=== PATIENT | female | born 1945 | race Caucasian/White ===

== ENCOUNTER 2016-07-19 09:23 | Emergency (ER) | payer MEDICARE, OTHER ==
[~2016-07-19] VITALS: Ht 160 cm; Wt 90.7 kg
--- NOTE | 2016-07-19 10:12 | PHYS DOC ---
Past Medical History Past Medical History: Diabetes-Type II, High Cholesterol, Hypertension Past Surgical History: No Surgical History Alcohol Use: None Drug Use: None Adult General Chief Complaint Chief Complaint: COUGH HPI HPI Patient is a 70 year old female who presents with 1 day of cough and congestion. Patient states that her symptoms started yesterday and progressively worsened throughout the day. Patient states that she has had blood -tinged mucus from her nose and has since had productive cough of blood-tinged white sputum. Patient denies any history of asthma or chronic lung disease. The patient has had chills but denies fevers. Patient also admits headache which she describes as generalized area patient rates her headache as 6 out of 10 currently. Patient states that she did get her flu shot for the season. Patient follows a Dr. Bill for primary care. Patient took Tylenol approximately 2-3 hours prior to arrival. Review of Systems Review of Systems Constitutional: Chills, denies fevers [] Eyes: Denies change in visual acuity, redness, or eye pain [] HENT: Nasal congestion, epistaxis, sore throat [] Respiratory: Productive cough [] Cardiovascular: Denies chest pain or edema [] GI: Denies abdominal pain, nausea, vomiting, bloody stools or diarrhea [] : Denies dysuria or hematuria [] Musculoskeletal: Denies back pain or joint pain [] Integument: Denies rash or skin lesions [] Neurologic: Denies headache, focal weakness or sensory changes [] Endocrine: Denies polyuria or polydipsia [] Allergies Allergies Allergies Coded Allergies Type Severity Reaction Last Updated Verified No Known Drug Allergies 07/19/16 No Physical Exam Physical Exam Constitutional: Alert, afebrile, no acute distress. [] HENT: Normocephalic, atraumatic, bilateral external ears normal, oropharynx moist, no oral exudates, dry nasal mucosa, thick white rhinorrhea. [] Eyes: PERRLA, EOMI, conjunctiva normal, no discharge. [] Neck: Normal range of motion, no tenderness, supple, no stridor. [] Cardiovascular:Heart rate regular rhythm, no murmur [] Lungs & Thorax: Nonlabored respirations, lungs clear to auscultation bilaterally , chest nontender to palpation [] Abdomen: Bowel sounds normal, soft, no tenderness, no masses, no pulsatile masses. [] Skin: Warm, dry, no erythema, no rash. [] Back: No tenderness, no CVA tenderness. [] Extremities: No tenderness, no cyanosis, no clubbing, ROM intact, no edema. [] Neurologic: Alert and oriented X 3, normal motor function, normal sensory function, no focal deficits noted. [] Current Patient Data Vital Signs Vital Signs Date Time Temp Pulse Resp B/P Pulse Ox O2 Delivery O2 Flow Rate FiO2 07/19/16 09:45 98.1 89 18 159/77 94 Room Air 98.1 Lab Values Laboratory Tests Test 07/19/16 10:20 Influenza Type A Antigen Negative (NEGATIVE) Influenza Type B Antigen Negative (NEGATIVE) EKG EKG Not performed [] Radiology/Procedures Radiology/Procedures [facility] [address] [place] [address] IMAGING REPORT Signed PATIENT: RICHARD RAM ACCOUNT: [id number] : 1945 LOCATION: ER AGE: 70 SEX: F EXAM STATUS: REG ER ORD. PHYSICIAN: LAUREN EASLEY MD REASON: cough PROCEDURE: CHEST PA & LATERAL 2 view CXR: Clinical indications: Productive cough today. Small amounts of blood in the mucus. History of diabetes and hypertension. Comparison: No previous chest x-ray. Chest CT dated May 12, 2012.. Findings: Chronic bronchitis is seen. There is chronic thickening of the minor fissure. Chronic scarring is seen within the left midlung zone. No new lung infiltrate or pleural effusion or pulmonary edema is seen. A granuloma of the right lung base is again noted. The heart size is at the upper limits of normal. The mediastinum and pulmonary vasculature and both charisma are otherwise unremarkable. The osseous structures are intact. IMPRESSION: Chronic bronchitis. No acute radiographic abnormality is seen. DICTATED and SIGNED BY: SHEILA TUCKER MD DATE: 07/19/16 1035 CC: LAUREN EASLEY MD; ZARI BILL MD ~ [] Course & Med Decision Making Course & Med Decision Making Pertinent Labs and Imaging studies reviewed. (See chart for details) Patient's flu test was negative and patient's chest x-ray did not show any evidence of pneumonia. The patient will be discharged with prescriptions for Tessalon Perles and albuterol. Advised follow-up in 2 days a primary doctor and return to emergency department for any worsening symptoms. Patient voiced understanding and in agreement with treatment plan. Dragon Disclaimer Dragon Disclaimer This electronic medical record was generated, in whole or in part, using a voice recognition dictation system. Departure Departure Impression: Primary Impression: Upper respiratory infection Disposition: HOME, SELF-CARE Condition: STABLE Referrals: ZARI BILL MD (PCP) Patient Instructions: Upper Respiratory Infection, Adult Additional Instructions: Follow-up with your primary doctor in 2 days. Return to emergency department for any worsening symptoms. Scripts Albuterol Sulfate (Proair Hfa Inhaler)8.5 Gm Hfa.aer.ad1 Puff INH PRN Q6HRS PRN SHORTNESS OF BREATH #1 INHALER Ref 0 Prov:LAUREN EASLEY MD 07/19/16 Benzonatate (Tessalon Perle)100 Mg Capsule1 Cap PO TID #30 CAP Prov:LAUREN EASLEY MD 07/19/16 Problem Qualifiers Primary Impression: Upper respiratory infection URI type: unspecified URI Qualified Code: J06.9 - Acute upper respiratory infection, unspecified LAUREN EASLEY MD Jul 19, 2016 10:12
--- NOTE | 2016-07-19 10:41 | RAD ---
2 view CXR: Clinical indications: Productive cough today. Small amounts of blood in the mucus. History of diabetes and hypertension. Comparison: No previous chest x-ray. Chest CT dated May 12, 2012.. Findings: Chronic bronchitis is seen. There is chronic thickening of the minor fissure. Chronic scarring is seen within the left midlung zone. No new lung infiltrate or pleural effusion or pulmonary edema is seen. A granuloma of the right lung base is again noted. The heart size is at the upper limits of normal. The mediastinum and pulmonary vasculature and both charisma are otherwise unremarkable. The osseous structures are intact. IMPRESSION: Chronic bronchitis. No acute radiographic abnormality is seen.
[2016-07-19 10:46] LABS: OBC FLU VALID
[2016-07-19] MEDS ORDERED: PROAIR HFA8.5 GM INH (10:51)
[2016-07-19] MEDS ORDERED: BENZ100C PO (10:51)
[2016-07-19 11:05] VITALS: BP 155/80
== END 2016-07-19 11:10 | disposition home or self-care (01) ==
LOC: ER 09:23
DX: J06.9 Acute upper respiratory infection, unspecified (principal); E11.9 Type 2 diabetes mellitus without complications; R51 Headache; R04.0 Epistaxis; E78.00 Pure hypercholesterolemia, unspecified; I10 Essential (primary) hypertension
CPT/HCPCS: 71020; 87804; 99285-25

== ENCOUNTER → 2016-10-19 | Outpatient (CLI) | payer OTHER ==
[~2016-10-19] MED LIST: BENZ100C PO; PROAIR HFA8.5 GM INH
--- NOTE | 2016-10-19 09:01 | KCIC ---
PROCEDURE Abdomen ultrasound HISTORY Worsening right upper quadrant pain with nausea and vomiting COMPARISON None FINDINGS Multiple sonographic images of the abdomen are submitted. There is no abnormality of the visualized pancreas. There is diffuse coarsening of the echotexture of liver, no obvious focal hepatic mass demonstrated. Right lobe of the liver measured 15.5 centimeters longitudinal. Common bile duct is dilated up to 0.9 centimeters. Technologist reports a positive sonographic Song sign although no significant intraluminal abnormality of the gallbladder. There is no gallbladder wall thickening, measures 0.2 centimeters. There is no pericholecystic fluid. Right kidney measured 11.1 x 5.9 x 5 centimeters, no hydronephrosis. There is segmental visualization of the inferior vena cava. No free fluid is demonstrated. IMPRESSION 1. Common bile duct is dilated up to 0.9 centimeters, more distal obstruction possible. There is nonspecific positive sonographic Song's sign although no significant intraluminal abnormality of the gallbladder. 2. There is hepatic steatosis. Electronically signed by: Jensen Munguia MD (Oct 19, 2016 09:00:20)
== END | disposition home or self-care (01) ==
LOC: KCIC US 07:39
PROVIDERS: ATTEND Family Medicine
DX: R10.11 Right upper quadrant pain (principal); K76.0 Fatty (change of) liver, not elsewhere classified
CPT/HCPCS: 76705

== ENCOUNTER → 2016-11-02 | Outpatient (CLI) | payer OTHER ==
[~2016-11-02] MED LIST changes: +IOHEXOL 240 MG/ML 50ML VIAL. PO ONE; +IOHEXOL 300 MG/ML 75 ML VIAL IV ONE
--- NOTE | 2016-11-02 13:24 | RAD ---
CT of the abdomen and pelvis with contrast, 11/02/2016: History: Right-sided abdominal pain Multidetector CT imaging was performed following oral and IV administration of contrast. A calcified granuloma is present in the right base. There are calcified granulomata in the liver and spleen. There is no evidence of a hepatic mass or bile duct dilatation. The gallbladder is unremarkable. No pancreatic abnormality is seen. The spleen is of normal size. There is mild bilateral renal cortical scarring. The kidneys show no evidence of obstruction or mass. The adrenal glands are unremarkable. Aortic calcific plaquing is present without evidence of aneurysm. No abdominal or pelvic adenopathy is seen. The uterus is surgically absent. Colonic diverticula are present, most numerous in the sigmoid colon. No paracolonic inflammatory process is seen. The bowel loops are not dilated. The appendix is not visualized and is probably surgically absent. No free fluid or free air is evident in the abdomen or pelvis. IMPRESSION: 1. Colonic diverticulosis. 2. No acute abdominal or pelvic abnormality is detected. PQRS Compliance Statement: One or more of the following individualized dose reduction techniques were utilized for this examination: 1. Automated exposure control 2. Adjustment of the mA and/or kV according to patient size 3. Use of iterative reconstruction technique
== END | disposition home or self-care (01) ==
LOC: CT 07:26
PROVIDERS: ATTEND Surgery
DX: K57.30 Diverticulosis of large intestine without perforation or abscess without bleeding (principal)
CPT/HCPCS: 74177; Q9966; Q9967

== ENCOUNTER 2016-11-16 08:02 | Observation (INO) | payer OTHER ==
[~2016-11-16] VITALS: Ht 162.6 cm; Wt 95.7 kg
[2016-11-16] VITALS (11 sets, daily range): BP systolic 117–136; BP diastolic 58–68
[~2016-11-16 08:02] MED LIST changes: +ASPI81TA2 PO; +ATOR20TA58 PO; +BISACODYL 10 MG SUPP.RECT. ONE; +BUPIVAC MPF-EPI 0.5%-1:200000 30 ML VIAL. ONE; +CALC-56 PO; +HEPARIN 1,000 UNIT in IV NORMAL SALINE 1,000 ML for SURG PERIOP IRR ONE; +IBUPROFEN 200 MG TABLET. PO PRN; -IOHEXOL 240 MG/ML 50ML VIAL. PO ONE; +IOHEXOL 300 MG/ML 50 ML VIAL. ONE; -IOHEXOL 300 MG/ML 75 ML VIAL IV ONE; +IV RINGERS,LACTATED 1000ML 1,000 ML IV SCH; +LIDOCAINE 1% 1 ML SYRINGE. ID PRN; +LORA10TA3 PO; +LOSA50TA6 PO; +METF500T4 PO; +MORPHINE SULFATE 2 MG/ML DISP.SYRIN. IV PRN; +OMEG300C PO; +ONDANSETRON PF 4 MG/2 ML VIAL. IV PRN; +PROCHLORPERAZINE 10 MG/2 ML VIAL. IV PRN; +SURGICEL HEMOSTAT 2X3 EACH. ONE; +fentaNYL PF VIAL 100 MCG/2 ML VIAL IV PRN
[2016-11-16] MEDS ORDERED: DEXAMETHASONE SOD PHOS 20 MG/5 ML VIAL. ONE (08:28)
[2016-11-16] MEDS ORDERED: PROPOFOL 20 ML IV ONE (08:28)
[2016-11-16] MEDS ORDERED: ONDANSETRON PF 4 MG/2 ML VIAL. ONE (08:28)
[2016-11-16] MEDS ORDERED: LIDOCAINE 2% 100 MG/5 ML SYRINGE. ONE (08:28)
[2016-11-16] MEDS ORDERED: ROCURONIUM 50 MG/5 ML VIAL. ONE (08:29)
[2016-11-16] MEDS ORDERED: fentaNYL PF VIAL 100 MCG/2 ML VIAL ONE (08:29)
[2016-11-16 08:46] LABS: BASO # 0.1 x10^3/uL (0.0-0.2); BASO % 1 % (0-3); EOS % 1 % (0-3); HEMATOCRIT 42.8 % (36.0-47.0); HEMOGLOBIN 13.9 g/dL (12.0-15.5); LYMPH # 2.3 x10^3/uL (1.0-4.8); LYMPH % 25 % (24-48); MEAN CORPUSCULAR HEMOGLOBIN 26 pg (25-35); MEAN CORPUSCULAR HGB CONC 32 g/dL (31-37); MEAN CORPUSCULAR VOLUME 79 fL (79-100); MONO % 6 % (0-9); NEUT % 67 % (31-73); PLATELET COUNT 231 x10^3/uL (140-400); RED BLOOD COUNT 5.43 x10^6/uL (3.50-5.40); RED CELL DISTRIBUTION WIDTH 15.7 % (11.5-14.5); WHITE BLOOD COUNT 9.1 x10^3/uL (4.0-11.0)
--- NOTE | 2016-11-16 09:40 | PDOC ---
SURGICAL PROGRESS NOTE Subjective 71 yo F with RUQ pain, possible cholecystitis TO OR for lap pippa with grams R/B/A d/w pt and pt's friend Office note H&P reviewed and unchanged Vital Signs Vital Signs Date Time Temp Pulse Resp B/P Pulse Ox O2 Delivery O2 Flow Rate FiO2 11/16/16 08:41 98.6 95 20 192/90 96 Room Air 98.6 Labs Laboratory Tests Test 11/16/16 08:35 11/16/16 09:01 White Blood Count 9.1x10^3/uL (4.0-11.0) Red Blood Count 5.43x10^6/uL (3.50-5.40) Hemoglobin 13.9g/dL (12.0-15.5) Hematocrit 42.8% (36.0-47.0) Mean Corpuscular Volume 79fL (79-100) Mean Corpuscular Hemoglobin 26pg (25-35) Mean Corpuscular Hemoglobin Concent 32g/dL (31-37) Red Cell Distribution Width 15.7% (11.5-14.5) Platelet Count 231x10^3/uL (140-400) Neutrophils (%) (Auto) 67% (31-73) Lymphocytes (%) (Auto) 25% (24-48) Monocytes (%) (Auto) 6% (0-9) Eosinophils (%) (Auto) 1% (0-3) Basophils (%) (Auto) 1% (0-3) Neutrophils # (Auto) 6.0x10^3uL (1.8-7.7) Lymphocytes # (Auto) 2.3x10^3/uL (1.0-4.8) Monocytes # (Auto) 0.6x10^3/uL (0.0-1.1) Eosinophils # (Auto) 0.1x10^3/uL (0.0-0.7) Basophils # (Auto) 0.1x10^3/uL (0.0-0.2) Glucose (Fingerstick) 94mg/dL (70-99) Laboratory Tests Test 11/16/16 08:35 11/16/16 09:01 White Blood Count 9.1x10^3/uL (4.0-11.0) Red Blood Count 5.43x10^6/uL (3.50-5.40) Hemoglobin 13.9g/dL (12.0-15.5) Hematocrit 42.8% (36.0-47.0) Mean Corpuscular Volume 79fL (79-100) Mean Corpuscular Hemoglobin 26pg (25-35) Mean Corpuscular Hemoglobin Concent 32g/dL (31-37) Red Cell Distribution Width 15.7% (11.5-14.5) Platelet Count 231x10^3/uL (140-400) Neutrophils (%) (Auto) 67% (31-73) Lymphocytes (%) (Auto) 25% (24-48) Monocytes (%) (Auto) 6% (0-9) Eosinophils (%) (Auto) 1% (0-3) Basophils (%) (Auto) 1% (0-3) Neutrophils # (Auto) 6.0x10^3uL (1.8-7.7) Lymphocytes # (Auto) 2.3x10^3/uL (1.0-4.8) Monocytes # (Auto) 0.6x10^3/uL (0.0-1.1) Eosinophils # (Auto) 0.1x10^3/uL (0.0-0.7) Basophils # (Auto) 0.1x10^3/uL (0.0-0.2) Glucose (Fingerstick) 94mg/dL (70-99) HENOK KOCH MD November 16, 2016 09:40
[2016-11-16] MEDS ORDERED: NEOSTIGMINE METHYLSULFATE 5 MG/5 ML SYRINGE. ONE (10:21)
[2016-11-16] MEDS ORDERED: GLYCOPYRROLATE 1 MG/5 ML VIAL. ONE (10:21)
--- NOTE | 2016-11-16 10:54 | RAD ---
Indication operative cholangiogram. For members of the Department of surgery fluoroscopy was provided. 2 films were obtained with the C-arm. Fluoroscopy time associated with the imaging was 15 seconds. Those intrahepatic radicles which are seen appear normal. No filling defects are seen. The common bile duct appears normal. Contrast flows unremarkably into the duodenum. IMPRESSION: Normal operative cholangiogram
[2016-11-16] MEDS: IV RINGERS,LACTATED 1000ML 1,000 ML IV SCH ×2 (11:11→16:36)
--- NOTE | 2016-11-16 11:11 | PDOC ---
BRIEF OPERATIVE NOTE Pre-Op Diagnosis Cholecystitis, RUQ pain Post-Op Diagnosis same Procedure Performed lap pippa with grams, liver biopsy Surgeon Marcy Anesthesia Type: General, Local Blood Loss 25 IV Fluid 1000 Specimens Obtained GB, liver biopsy Findings karishma arnoldo sia adhesions, abd wall omental adhesions, fatty GB with adhesions , wnl IOC Additional Remarks [id number] HENOK KOCH MD November 16, 2016 11:11
[2016-11-16] MEDS ORDERED: 0.9 % SODIUM CHLORIDE 10 ML DISP.SYRIN. IV PRN (11:15)
[2016-11-16] MEDS ORDERED: ONDANSETRON PF 4 MG/2 ML VIAL. IV PRN (11:15)
[2016-11-16] MEDS ORDERED: DEXTROSE 50% 25 GM / 50ML DISP.SYRIN. IV PRN (11:15)
[2016-11-16] MEDS ORDERED: HYDROcodone/APAP 5/325MG 1 TAB TABLET PO PRN (11:15)
[2016-11-16] MEDS: fentaNYL PF VIAL 100 MCG/2 ML VIAL IV PRN ×2 (11:19→11:38)
[2016-11-16] MEDS: HYDROmorphone 2 MG/ML VIAL IV PRN ×2 (11:55→12:10)
[2016-11-16] MEDS ORDERED: LABETALOL 20 MG/4 ML DISP.SYRIN. ONE (13:12)
[2016-11-16] MEDS ORDERED: SEVOFLURANE 61 TO 120 MINUTES. IH ONE (13:12)
--- NOTE | 2016-11-16 15:59 | OP ---
DATE OF SURGERY: 11/16/2016 REFERRING PHYSICIAN: Dr. Yvette Bill. Thank you for the consult. PREOPERATIVE DIAGNOSIS: Right upper quadrant abdominal pain, cholecystitis. PROCEDURES: Laparoscopic cholecystectomy with intraoperative cholangiogram and liver biopsy. SURGEON: Luis Alberto Vidal MD. ESTIMATED BLOOD LOSS: 20 mL. FLUIDS: 1000 mL. COMPLICATIONS: None. FINDINGS: Extensive adhesions to the anterior abdominal wall, Ukmo-Fsef-Bzbhun adhesions, and normal-appearing intraoperative cholangiogram. INDICATIONS: A 71-year-old female who complains of right upper quadrant abdominal pain. Ultrasound was concerning for pain overlying the gallbladder and concerning for possible common bile duct dilatation. CT was unremarkable, however, subsequently given her pain, it was felt the patient best be served by laparoscopic versus open cholecystectomy with intraoperative cholangiogram and liver biopsy. The patient was informed of the risks, benefits, alternatives to procedure, risks including but not limited to bleeding, infection, damage to surrounding structures, risk of anesthesia, risk of an open procedure. The patient appears to understand. Her insightful questions were answered, and she agrees to proceed. DESCRIPTION OF PROCEDURE: After obtaining informed consent, the patient was taken to the operating room, induced under general endotracheal anesthetic, the patient was prepped and draped in usual fashion in the anterior abdominal wall. A 0.5% Marcaine with epinephrine was injected in the supraumbilical area. Incision was made using 15-blade scalpel. A 5-mm nonbladed trocar was introduced into the abdominal cavity under direct vision of laparoscope. Pneumoperitoneum was established. However, this demonstrated a large amount of adhesions in the midline extending from the upper abdomen to the lower abdomen consistent with the patient's previous hysterectomy scar. There does not appear to be any bowel within this, but a large amount of omentum. Two additional 5-mm ports were placed in the right abdomen under laparoscopic guidance and another 12-port was placed in the epigastrium. Extensive clearance of the omentum off the anterior abdominal wall was performed using careful sharp and blunt dissection. Again, there was no evidence of bowel within this and no evidence of bowel injury. There is no evidence of trocar injury. Attention was then turned to the right upper quadrant. There was extensive Jtdj-Nnoi-Ilywdz adhesions. These were taken down using EndoShears. Gallbladder looks very fatty in nature and had a large amount of adhesions to it. This was cleared off using careful sharp and blunt dissection. Circumferential dissection was performed of the cystic duct at cystic duct infundibulum junction. Critical view was obtained. This demonstrated cystic duct and cystic artery as the only structures going to the gallbladder. Clips were placed on the cystic artery, and clip was placed on the cystic duct infundibulum junction. Incision was made in the cystic duct using EndoShears. Cholangiogram catheter was introduced, and cholangiogram was obtained. Cholangiogram demonstrated normal-appearing hepatic ducts, normal-appearing common bile, and free extravasation into the duodenum. Cholangiogram catheter was removed. Multiple clips were placed on cystic duct stump including Hem-o-nithin, and the cystic duct was divided. Cystic artery was divided between the previously placed clips. Gallbladder was taken off of the gallbladder fossa sharply using electrocautery. Gallbladder was placed in EndoCatch bag and brought out through the epigastric port and passed off the field and sent to Pathology for evaluation. Multiple liver biopsies were made using a Costa-Cut needle biopsy. The abdominal cavity was copiously irrigated with normal saline solution. Hemostasis was obtained using electrocautery on the gallbladder fossa and the liver biopsy sites. There was no evidence of bleeding or other pathology at the time of closure. All ports were removed under direct vision of laparoscope. There was no evidence port site bleeding. Fascial defect in the epigastric area was reapproximated using interrupted 0 Vicryl stitch using Endo Close. All skin incisions were reapproximated using multiple interrupted 4-0 Monocryl in subcuticular fashion. Sterile dressing was placed over all wounds. The patient tolerated procedure well and was discharged to recovery room in stable condition. All counts were correct. There were no immediate complications. LUIS ALBERTO VIDAL MD DR: KATHLEEN/andrew JOB#: [id number] / [id number] YVETTE Vines MD
[2016-11-16] MEDS: DOCUSATE SODIUM 100 MG CAPSULE. PO SCH (21:19)
[2016-11-17] MEDS: IV RINGERS,LACTATED 1000ML 1,000 ML IV SCH (01:26)
[2016-11-17 03:44] VITALS: BP 114/61
--- NOTE | 2016-11-17 05:05 | ACF ---
Admission Forms Criteria GALLBLADDER OR BILE DUCT INFLAMMATION OR STONE Clinical Indications for Admission to Inpatient Care ( Place 'X' for any and all applicable criteria): Admission is indicated for patients with ANY ONE of the following(1)(2)(3)(4)(5) : [ ]I. Acute cholecystitis as indicated by ALL of the following: [ ]a) Right upper quadrant pain, mass, or tenderness [ ]b) Systemic signs of inflammation indicated by ANY ONE of the following: [ ]i) Fever [ ]ii) C-reactive protein level greater than 10 mg/L (95 nmol/L) [ ]iii) White blood cell count greater than 10,000/mm3 (10 x109/L) or less than 4000/mm3 (4 x109/L) [X]II. Inpatient admission required rather than observation care (Also use Gallbladder or Bile Duct Inflammation or Stone: Observation Care as appropriate) because of ANY ONE of the following: [ ]a) Common bile duct obstruction diagnosed [ ]b) Vomiting that is severe or persistent [ ]c) Severe pain requiring acute inpatient management [ ]d) Signs of intestinal obstruction or peritonitis [A] [ ]e) Severe electrolyte abnormalities requiring inpatient care [ ]f) Absent bowel sounds with complete ileus(8) [ ]g) Hemodynamic instability [ ]h) High fever or infection requiring inpatient admission as indicated by ANY ONE of the following (9): [ ]1) Appropriate outpatient or observation care antimicrobial Treatment. unavailable, not effective, or not feasible [ ]2) Temperature greater than 104.9 degrees F (40.5 degrees C) (oral) [ ]3) Temperature greater than 103.1 degrees F (39.5 degrees C) (oral) or less than 96.8 degrees F (36 degrees C) (rectal) that does not respond to all emergency treatment measures [ ]4) Documented bacteremia [ ]i) IV fluid to replace significant ongoing losses (greater than 3 L/m2 per day) [ ]j) Percutaneous or open drainage (eg, abscess, biliary tract) procedures [X]k) Immediate inpatient surgery [ ]l) Other condition, treatment or monitoring requiring inpatient admission [ ]III. Acute cholangitis as indicated by ALL of the following(9)(10): [ ]a) Systemic signs of inflammation indicated by ANY ONE of the following: [ ]i) Fever [ ]ii) C-reactive protein level greater than 10 mg/L (95 nmol /L) [ ]iii) White blood cell count greater than 10,000/mm3 (10 x109/L) or less than 4000/mm3 (4 x109/L) [ ]b) Evidence of common bile duct disease indicated by ANY ONE of the following: [ ]i) Total serum bilirubin level greater than or equal to 2 mg/dL (34 micromoles/L) [ ]ii) Liver function test (alkaline phosphatase (ALP), r- glutamyltransferase (GGT), aspartate aminotransferase (AST), or alanine aminotransferase (ALT)) greater than 1.5 times the upper limit of normal[B] [ ]iii) Hepatobiliary imaging showing biliary dilatation or evidence of etiology (eg, stricture, stone, previously placed stent) Extended stay beyond goal length of stay may be needed for (1)(2)): [ ]a) Bacteremia or Hemodynamic instability [ ]b) Cholecystectomy [ ]c) Other surgical procedure(24) [ ]d) Percutaneous or endoscopic ultrasound-guided cholecystostomy The original [facility] content created by [facility] has been revised. The portions of the content which have been revised are identified through the use of italic text or in bold, and [facility] has neither reviewed nor approved the modified material. All other unmodified content is copyright [facility]. Please see references footnoted in the original [facility] edition 2016 Admission Criteria Met?: Yes ANIBAL ARANA November 17, 2016 05:05
[2016-11-17 07:15] VITALS: BP 119/55
[2016-11-17] MEDS ORDERED: ACETAMINOPHEN 325 MG TABLET. PO PRN (08:00)
[2016-11-17] MEDS: DOCUSATE SODIUM 100 MG CAPSULE. PO SCH (08:21)
--- NOTE | 2016-11-17 09:22 | PDOC ---
SURGICAL PROGRESS NOTE Subjective Pt with c/o soreness, fer PO Vital Signs Vital Signs Date Time Temp Pulse Resp B/P Pulse Ox O2 Delivery O2 Flow Rate FiO2 11/17/16 07:15 97.9 73 16 119/55 94 Room Air 97.9 11/16/16 17:15 1.0 I&O Intake and Output 11/17/16 07:00 Intake Total 2930 ml Output Total 225 ml Balance 2705 ml Intake Oral 480 ml IV Total 2450 ml Output Urine Total 200 ml Estimated Blood Loss 25 ml # Voids 6 General: Alert, Oriented X3, Cooperative, No acute distress Abdomen: Soft, Other (mild TTP) Labs Laboratory Tests Test 11/16/16 08:35 11/16/16 09:01 11/16/16 11:18 11/16/16 21:09 White Blood Count 9.1x10^3/uL (4.0-11.0) Red Blood Count 5.43x10^6/uL (3.50-5.40) Hemoglobin 13.9g/dL (12.0-15.5) Hematocrit 42.8% (36.0-47.0) Mean Corpuscular Volume 79fL (79-100) Mean Corpuscular Hemoglobin 26pg (25-35) Mean Corpuscular Hemoglobin Concent 32g/dL (31-37) Red Cell Distribution Width 15.7% (11.5-14.5) Platelet Count 231x10^3/uL (140-400) Neutrophils (%) (Auto) 67% (31-73) Lymphocytes (%) (Auto) 25% (24-48) Monocytes (%) (Auto) 6% (0-9) Eosinophils (%) (Auto) 1% (0-3) Basophils (%) (Auto) 1% (0-3) Neutrophils # (Auto) 6.0x10^3uL (1.8-7.7) Lymphocytes # (Auto) 2.3x10^3/uL (1.0-4.8) Monocytes # (Auto) 0.6x10^3/uL (0.0-1.1) Eosinophils # (Auto) 0.1x10^3/uL (0.0-0.7) Basophils # (Auto) 0.1x10^3/uL (0.0-0.2) Glucose (Fingerstick) 94mg/dL (70-99) 127mg/dL (70-99) 177mg/dL (70-99) Test 11/17/16 07:37 Glucose (Fingerstick) 124mg/dL (70-99) Laboratory Tests Test 11/16/16 11:18 11/16/16 21:09 11/17/16 07:37 Glucose (Fingerstick) 127mg/dL (70-99) 177mg/dL (70-99) 124mg/dL (70-99) Problem List Problems Medical Problems: (1) Cholecystitis Status: Acute Assessment/Plan s/p lap pippa pt requests d/c home d/c home doesn't like lortab (nausea), will encourage ibuprofen and tylenol Problems: HENOK KOCH MD November 17, 2016 09:22
[2016-11-17 10:35] VITALS: BP 117/56
--- NOTE | 2016-11-17 17:01 | PATHOLOGY ---
PATHOLOGY REPORT * * * * * * * * FINAL DIAGNOSIS: A. Gallbladder, cholecystectomy: - Chronic cholecystitis. - Cystic adenomyosis of gallbladder fundus, focal. B. Liver biopsy: - Results to be reported separately. COMMENT: There are no calculi identified within the gallbladder lumen or specimen container. Sections of the gallbladder show mild chronic inflammation. There is no evidence of malignancy. The liver biopsy results will be reported separately. (JPM:mgr; d/t: 11/17/16) Special Stains Performed: Iron stain, trichrome, reticulin, PAS, PAS with diastase (B1) REPORT ELECTRONICALLY SIGNED BY: Joe Youngblood M.D. DATE/TIME: 11/17/2016 17:00 * * * * * * * * GROSS PATHOLOGY: A. Received in formalin labeled "Richard Ram, gallbladder and contents," is a 6.8 x 3.3 x 2.7 cm, intact gallbladder with pink-becker serosal surfaces. Opening the gallbladder reveals a velvety, pink-renae, bile-stained mucosa and an average wall thickness of 0.1 cm. Calculi are not present and no masses are noted grossly. At the fundal aspect of the gallbladder, there is a multilocular cystic structure present measuring 1.2 x 0.8 x 0.5 cm. Chief Pharmacist sections from the body and fundus are submitted along with the proximal margin in cassette A1. B. Received in formalin labeled "Richard Ram, liver biopsy," are four distinct needle cores of orange white-renae soft tissue ranging from 0.7 to 1.8 cm in length, which are submitted entirely in cassette B1. (CAA; 11/16/2016) INITIAL CPT CODE(S): A; 38903 B; 19260, 88540, 63457, 08124, 39665, 18037 Professional services performed by [facility] at [address] [address] Technical services performed by [facility] at [address] [place] [address], [address], [place] [address]. SPECIMEN(S) RECEIVED: A.Gallbladder and contents B.Liver, needle biopsy CLINICAL HISTORY: Right upper quadrant abdominal pain PATIENT: RICHARD RAM /AGE: 3 1945 (Age: 71) PATIENT #: [id number] ALT CASE #: SPECIMEN COLLECTION DATE: 11/16/2016 SPECIMEN RECEIVED DATE: 11/16/2016 [facility] - [address] [place] [address] - PHONE: [phone] * * * END OF REPORT * * *
== END 2016-11-17 12:00 | disposition home or self-care (01) ==
LOC: SURG 08:02 → 4 NORTH 11:30
PROVIDERS: ADMIT Surgery; ATTEND Surgery
DX: K81.9 Cholecystitis, unspecified (principal); K66.0 Peritoneal adhesions (postprocedural) (postinfection); K82.8 Other specified diseases of gallbladder; Z90.710 Acquired absence of both cervix and uterus
CPT/HCPCS: 36415; 47001; 47563; 74300; 82947; 85027; 88304; 88307; 88313; 96374; 99285; C1782; G0378; J0690; J0780; J1100; J1170; J2405; J2704; J2710; J3010; J3490; J7030; J7120; Q9967; G0379

== ENCOUNTER → 2017-08-04 | Outpatient (CLI) | payer OTHER | END | disposition home or self-care (01) | LOC: MAMMO 09:31 | DX: Z12.31 Encounter for screening mammogram for malignant neoplasm of breast (principal) | CPT/HCPCS: 77067 ==

== ENCOUNTER → 2017-09-16 | Day surgery (SDC) | payer OTHER ==
[~2017-09-16] MED LIST changes: -ASPI81TA2 PO; -ATOR20TA58 PO; -BENZ100C PO; -BISACODYL 10 MG SUPP.RECT. ONE; -BUPIVAC MPF-EPI 0.5%-1:200000 30 ML VIAL. ONE; -CALC-56 PO; -HEPARIN 1,000 UNIT in IV NORMAL SALINE 1,000 ML for SURG PERIOP IRR ONE; -IBUPROFEN 200 MG TABLET. PO PRN; -IOHEXOL 300 MG/ML 50 ML VIAL. ONE; -IV RINGERS,LACTATED 1000ML 1,000 ML IV SCH; -LIDOCAINE 1% 1 ML SYRINGE. ID PRN; +LIDOCAINE 1% PF 2 ML VIAL. ID; +LIDOCAINE 2% PF Vial for OR 5 ML VIAL.; -LORA10TA3 PO; -LOSA50TA6 PO; -METF500T4 PO; +MIDAZOLAM HCL/PF 2 MG/2 ML VIAL. IV; -MORPHINE SULFATE 2 MG/ML DISP.SYRIN. IV PRN; -OMEG300C PO; -ONDANSETRON PF 4 MG/2 ML VIAL. IV PRN; -PROAIR HFA8.5 GM INH; -PROCHLORPERAZINE 10 MG/2 ML VIAL. IV PRN; +PROPOFOL 40 ML IV; -SURGICEL HEMOSTAT 2X3 EACH. ONE; +fentaNYL PF VIAL 100 MCG/2 ML VIAL IV; -fentaNYL PF VIAL 100 MCG/2 ML VIAL IV PRN
[2017-09-16] MEDS: IV RINGERS,LACTATED 1000ML 1,000 ML IV (06:56)
== END | disposition home or self-care (01) ==
LOC: ENDOS 06:30
DX: K64.0 First degree hemorrhoids (principal); K57.30 Diverticulosis of large intestine without perforation or abscess without bleeding; Z80.0 Family history of malignant neoplasm of digestive organs; E78.5 Hyperlipidemia, unspecified; E11.9 Type 2 diabetes mellitus without complications; I10 Essential (primary) hypertension; Z79.899 Other long term (current) drug therapy; Z79.82 Long term (current) use of aspirin; Z79.84 Long term (current) use of oral hypoglycemic drugs; Z90.710 Acquired absence of both cervix and uterus; Z90.49 Acquired absence of other specified parts of digestive tract; Z87.891 Personal history of nicotine dependence; Z88.8 Allergy status to other drugs, medicaments and biological substances; E78.00 Pure hypercholesterolemia, unspecified
CPT/HCPCS: 45378; J2704

== ENCOUNTER → 2018-07-07 | Day surgery (SDC) | payer OTHER ==
[~2018-07-07] MED LIST changes: +ALBU2.5V8 INH; +ASPI-630 PO; +ATOR20TA58 PO; +BENZ100C PO; +CALC-56 PO; +IV RINGERS,LACTATED 1000ML 1,000 ML IV SCH; -LIDOCAINE 1% PF 2 ML VIAL. ID; +LIDOCAINE 1% PF 2 ML VIAL. ID PRN; +LIDOCAINE 1% PF 2 ML VIAL. ONE; -LIDOCAINE 2% PF Vial for OR 5 ML VIAL.; +LORA10TA3 PO; +LOSA-73 PO; +METF500T16 PO; -MIDAZOLAM HCL/PF 2 MG/2 ML VIAL. IV; +MIDAZOLAM HCL/PF 2 MG/2 ML VIAL. IV PRN; +OMEG300C PO; -PROPOFOL 40 ML IV; +PROPOFOL 40 ML IV ONE; -fentaNYL PF VIAL 100 MCG/2 ML VIAL IV; +fentaNYL PF VIAL 100 MCG/2 ML VIAL IV PRN
[2018-07-07 07:52] VITALS: BP 159/75
--- NOTE | 2018-07-07 10:19 | HP ---
ADMIT DATE: 07/07/2018 REFERRING PHYSICIAN: Dr. Yvette Bill. HISTORY OF PRESENT ILLNESS: A 72-year-old female whose past medical history is significant for hyperlipidemia, hypertension, diabetes, is seen with right lower quadrant abdominal pain. Interval CT scan has revealed possible thickening in the right colon. Interval colonoscopy is recommended. The patient denies any change in bowel habits, diarrhea, constipation, additional complaints presently. PAST MEDICAL HISTORY: Diabetes, hypertension, hyperlipidemia. ALLERGIES: TRISH INHIBITORS AND ROSUVASTATIN. MEDICATIONS: Aspirin, atorvastatin, calcium, loratadine, losartan, metformin, omega 3. FAMILY AND SOCIAL HISTORY: She is a former smoker, social drinker. PAST SURGICAL HISTORY: Status post cholecystectomy, hysterectomy, tonsillectomy and eye surgery. REVIEW OF SYSTEMS: Per records. PHYSICAL EXAMINATION: GENERAL: A well-nourished, well-developed female. VITAL SIGNS: Temperature is 97.8, pulse 81, respirations 20. HEENT: Normocephalic and atraumatic head. Pupils and extraocular muscles are not tested. Sclerae anicteric. LUNGS: Clear. CARDIOVASCULAR: Reveals S1, S2 without S3, S4 or appreciable murmur. ABDOMEN: Soft abdomen, normal bowel sounds without appreciable hepatosplenomegaly. EXTREMITIES: Reveals no cyanosis, clubbing, or edema. IMPRESSION: Abnormal CT scan with positive family history of colon cancer. Interval colonoscopy is recommended. If this is unrevealing for malignancy or inflammatory bowel disease or ischemia, a small bowel series and a CT angiogram will then be pursued. GONZALO JACKMAN MD DR: JANNY/andrew JOB#: [id number] / [id number]
== END | disposition home or self-care (01) ==
LOC: SURG 05:58
PROVIDERS: ATTEND Internal Medicine Gastroenterology
DX: K57.30 Diverticulosis of large intestine without perforation or abscess without bleeding (principal); K64.0 First degree hemorrhoids; I10 Essential (primary) hypertension; E78.5 Hyperlipidemia, unspecified; E11.9 Type 2 diabetes mellitus without complications; Z88.8 Allergy status to other drugs, medicaments and biological substances; Z79.899 Other long term (current) drug therapy; Z79.82 Long term (current) use of aspirin; Z87.891 Personal history of nicotine dependence; Z72.89 Other problems related to lifestyle; Z90.49 Acquired absence of other specified parts of digestive tract; Z90.710 Acquired absence of both cervix and uterus; Z98.890 Other specified postprocedural states; Z80.0 Family history of malignant neoplasm of digestive organs; Z79.84 Long term (current) use of oral hypoglycemic drugs
CPT/HCPCS: 45378; J2704

== ENCOUNTER → 2018-09-05 | Outpatient (CLI) | payer OTHER ==
[2018-07-07 07:52] VITALS: BP 159/75
[~2018-09-05] MED LIST changes: -IV RINGERS,LACTATED 1000ML 1,000 ML IV SCH; -LIDOCAINE 1% PF 2 ML VIAL. ID PRN; -LIDOCAINE 1% PF 2 ML VIAL. ONE; -MIDAZOLAM HCL/PF 2 MG/2 ML VIAL. IV PRN; -PROPOFOL 40 ML IV ONE; -fentaNYL PF VIAL 100 MCG/2 ML VIAL IV PRN
--- NOTE | 2018-09-05 09:56 | RAD ---
DATE: 09/05/2018 EXAM: MAMMO [place] SCREENING BILATERAL HISTORY: Routine screening COMPARISON: 08/04/2017 This study was interpreted with the benefit of Computerized Aided Detection (CAD). Breast Density: FATTY The breast parenchyma is primarily fatty replaced. Breast parenchyma level density A. FINDINGS: 2-D and 3-D tomosynthesis imaging was performed in CC and MLO projections. There is a small superficial nodular opacity identified inferomedially on the right which was not evident on the previous study. This is best seen on the right CC tomosynthesis image #14 and right oblique tomosynthesis image #57. No other new or enlarging breast densities are seen. A few scattered benign type calcifications are present. No suspicious microcalcifications are seen. IMPRESSION: Small right breast nodule. Diagnostic mammography to include a straight mediolateral view and probably right breast ultrasound are suggested for further evaluation. BI-RADS CATEGORY: 0 INCOMPLETE: NEEDS ADDITIONAL IMAGING EVALUATION AND/OR PRIOR MAMMOGRAMS FOR COMPARISON. RECOMMENDED FOLLOW-UP: ADD ADDITIONAL IMAGING PQRS compliance statement: Patient information was entered into a reminder system with a target due date for the next mammogram. Mammography is a sensitive method for finding small breast cancers, but it does not detect them all and is not a substitute for careful clinical examination. A negative mammogram does not negate a clinically suspicious finding and should not result in delay in biopsying a clinically suspicious abnormality. "Our facility is accredited by the [employer] Mammography Program."
== END | disposition home or self-care (01) ==
LOC: MAMMO 08:11
PROVIDERS: ATTEND Family Medicine
DX: Z12.31 Encounter for screening mammogram for malignant neoplasm of breast (principal); N63.10 Unspecified lump in the right breast, unspecified quadrant
CPT/HCPCS: 77063; 77067

== ENCOUNTER → 2018-09-19 | Outpatient (CLI) | payer OTHER ==
[2018-07-07 07:52] VITALS: BP 159/75
--- NOTE | 2018-09-20 08:03 | RAD ---
DATE: 09/19/2018 11:45 AM EXAM: DIGITAL DIAGNOSTIC RT, BREAST RIGHT HISTORY: further evaluation of a finding noted on her most recent screening mammographic examination. On that examination a nodule was seen within the inferior right breast COMPARISON: 09/05/2018, 08/04/2017, 08/03/16 Spot compression views of the right breast in CC and MLO projections as well as 2-D full field ML view of the right breast was performed. This study was interpreted with the benefit of Computerized Aided Detection (CAD ). Breast Density: The breast parenchyma is primarily fatty replaced. Breast parenchyma level density A. FINDINGS: The previously seen nodule in the inferior/medial right breast is not well delineated on the full field ML view or the spot compression views. Therefore this area was further evaluated with ultrasound. TECHNIQUE: Targeted high resolution sonography of the medial, inferior right breast was performed. ULTRASOUND FINDINGS: Sonographic evaluation of the area of focal demonstrates unremarkable fibroglandular tissue without evidence for suspicious cystic or solid mass. IMPRESSION: No mammographic or sonographic evidence of malignancy. BI-RADS CATEGORY: 2 BENIGN FINDING(S) RECOMMENDED FOLLOW-UP: 12M 12 MONTH FOLLOW-UP Annual screening mammography is recommended, unless clinically indicated sooner based on symptoms or change in physical exam. PQRS compliance statement: Patient information was entered into a reminder system with a target due date 09/06/2019 for the next mammogram. Mammography is a sensitive method for finding small breast cancers, but it does not detect them all and is not a substitute for careful clinical examination. A negative mammogram does not negate a clinically suspicious finding and should not result in delay in biopsying a clinically suspicious abnormality. "Our facility is accredited by the [employer] Mammography Program." LULD
== END | disposition home or self-care (01) ==
LOC: MAMMO 09:18
PROVIDERS: ATTEND Family Medicine
DX: R92.8 Other abnormal and inconclusive findings on diagnostic imaging of breast (principal)
CPT/HCPCS: 76641; 77065

== ENCOUNTER → 2018-11-23 | Outpatient (CLI) | payer OTHER ==
[2018-07-07 07:52] VITALS: BP 159/75
[~2018-11-23] MED LIST changes: +BARIUM SULFATE 60% 355 ML SUSP PO ONE
--- NOTE | 2018-11-23 13:28 | RAD ---
Small bowel series, 11/23/2018: HISTORY: Abdominal pain The preliminary abdominal image demonstrates a nonspecific gas pattern. There is no evidence of organomegaly. Scattered degenerative changes are present in the spine. Serial digital imaging was performed following oral ingestion of liquid barium. 1.0 minutes of fluoroscopy time was also utilized with 4 fluoroscopic spot images were recorded. The small bowel loops are of normal caliber with no evidence of thickening of their folds. There was normal transit of the barium through the small bowel into the colon. The terminal ileum is unremarkable. IMPRESSION: No significant small bowel abnormality is detected. Electronically signed by: Craig Rowe MD (11/23/2018 1:25 PM) [facility]
== END | disposition home or self-care (01) ==
LOC: RAD 10:00
PROVIDERS: ATTEND Internal Medicine Gastroenterology
DX: R10.31 Right lower quadrant pain (principal); M47.819 Spondylosis without myelopathy or radiculopathy, site unspecified
CPT/HCPCS: 74250

== ENCOUNTER → 2018-12-19 | Outpatient (CLI) | payer OTHER ==
[2018-07-07 07:52] VITALS: BP 159/75
[~2018-12-19] MED LIST changes: -BARIUM SULFATE 60% 355 ML SUSP PO ONE; +IOHEXOL 350 MG/ML 100 ML VIAL. IV ONE
[2018-12-19 08:22] LABS: CREATININE 0.7 mg/dL (0.6-1.0)
--- NOTE | 2018-12-19 10:10 | RAD ---
CTA of the abdomen compared to CT scan of the abdomen and pelvis dated November 02, 2016 for right lower quadrant pain. TECHNIQUE: 0.5 mm axial images are obtained from the apex of diaphragm to the iliac crest following administration of IV contrast in the arterial phase. Sagittal and coronal MIPS images are evaluated. 3-D volume rendered images of the vasculature are also reviewed. Nonvascular findings: There are densely calcified mediastinal hilar lymph nodes, and there is a calcified granuloma in the right lung base as well. Findings are most consistent with antecedent granulomatous disease. Findings are stable since 2012. No other abnormalities of the lung bases. Antecedent granulomatous changes are seen throughout the liver and spleen as well. Evaluation of the solid organ parenchyma is limited by arterial phase of contrast, however there are no focal parenchymal lesions identified within the liver, spleen, bilateral adrenal glands, or bilateral kidneys. Within the neck of the pancreas, there is redemonstration of a bilobed cystic abnormality with central calcification, which is grossly unchanged in size and appearance from the prior CT scan. This may represent a pancreatic cyst, pseudocyst, serous cystadenoma, or side branch IPMN. The portal vein is patent. No suspicious adenopathy is identified. No free or loculated fluid collections are seen. Visualized small and large bowel are grossly unremarkable, though there are some diverticula near the hepatic flexure as well as in the distal descending colon. The right iliac wing is notable for a large predominantly lytic but benign-appearing lesion with internal matrix. Appearance is most suggestive of a benign hemangioma versus benign chondroid lesion. This lesion is stable since 2017. No other osseous abnormalities. Vascular findings: There is only mild atherosclerosis, and no aneurysms are identified. The celiac artery, superior mesenteric artery, inferior mesenteric artery, single bilateral renal arteries, and iliofemoral arteries are all widely patent with no significant stenoses identified. IMPRESSION: 1. No significant vascular abnormality, and no CT evidence of organ malperfusion. 2. Cystic abnormality of the neck of the pancreas, likely a benign pancreatic cyst, pseudocyst, serous cystadenoma, or side branch IPMN. This abnormality is stable since 2017. 3. Benign appearing right iliac bone lesion, also stable since 2017. Electronically signed by: Aurelio Leon MD (12/19/2018 10:07 AM) [id number]
== END | disposition home or self-care (01) ==
LOC: CT 09:22
PROVIDERS: ATTEND Internal Medicine Gastroenterology
DX: K86.89 Other specified diseases of pancreas (principal); K57.30 Diverticulosis of large intestine without perforation or abscess without bleeding; M89.8X8 Other specified disorders of bone, other site; J84.10 Pulmonary fibrosis, unspecified; I70.90 Unspecified atherosclerosis
CPT/HCPCS: 36415; 74175; 82565; 84520; Q9967

== ENCOUNTER → 2019-06-13 | Outpatient (CLI) | payer OTHER ==
[2018-07-07 07:52] VITALS: BP 159/75
[~2019-06-13] MED LIST changes: +GADOTERATE 7.5 MMOL/15ML VIAL. IVP ONE; -IOHEXOL 350 MG/ML 100 ML VIAL. IV ONE
--- NOTE | 2019-06-13 12:12 | RAD ---
MRI abdomen without and with contrast HISTORY: Pancreatic lesion. TECHNIQUE: MR imaging of the abdomen acquired without and with 14 mL dotarem gadolinium intravenous contrast. COMPARISON: CT abdomen December 19, 2018. FINDINGS: Liver steatosis. No liver mass lesion evident. At the body the pancreas there is a vertical oblong 2.5 cm unilocular cyst, there may be too thin incomplete internal septations best observed on coronal T2-weighted imaging however there are no thickened septations or intracystic nodules or enhancement of the lesion evident. There is no pancreatic ductal dilation. Separately scattered within the pancreas or very tiny subcentimeter unilocular simple cyst without enhancement. No edema of the pancreas. No solid or hypervascular enhancing mass of the pancreas. Imaged kidneys, adrenals, spleen and upper GI tract are unremarkable. No biliary ductal dilation. No abdominal fluid or adenopathy. IMPRESSION: 1. 2.5 cm cyst of the body the pancreas with 2 thin internal nonenhancing septations, no thickened or enhancing septations or nodules within the cyst. This may be a chronic pseudocyst given the presence of scattered tiny subcentimeter cysts elsewhere within the pancreas. A cystadenoma or mucinous cystic neoplasm are considered much less likely considerations. Per ACR guidelines six-month follow-up is advised to document continued stability, although endoscopic ultrasound and biopsy based on its size is a secondary option if follow-up is not desired. 2. Liver steatosis. Electronically signed by: Alejandro Bergman MD (06/13/2019 12:09 PM) [id number]
== END | disposition home or self-care (01) ==
LOC: MRI 09:30
PROVIDERS: ATTEND Internal Medicine Gastroenterology
DX: K86.2 Cyst of pancreas (principal); K76.0 Fatty (change of) liver, not elsewhere classified
CPT/HCPCS: 74183; A9575

== ENCOUNTER → 2019-07-06 | Outpatient (CLI) | payer OTHER ==
[2018-07-07 07:52] VITALS: BP 159/75
[~2019-07-06] MED LIST changes: -GADOTERATE 7.5 MMOL/15ML VIAL. IVP ONE
--- NOTE | 2019-07-06 09:09 | CARD ---
MR#: [id number] Date of Study: 07/06/2019 Ordering Physician: THOMAS HENDERSON, Referring Physician: THOMAS HENDERSON Tech: Lani Orosco SANJUANA APPROVED REPORT EXAM: Two-dimensional and M-mode echocardiogram with Doppler and color Doppler. Other Information Quality : Good INDICATION Hypertension/HCVD Pre-Op RISK FACTORS Hypertension 2D DIMENSIONS RVDd3.1 (2.9-3.5cm)Left Atrium(2D)3.9 (1.6-4.0cm) IVSd1.1 (0.7-1.1cm)Aortic Root(2D)2.7 (2.0-3.7cm) LVDd4.1 (3.9-5.9cm)LVOT Diameter2.0 (1.8-2.4cm) PWd1.0 (0.7-1.1cm)LVDs2.5 (2.5-4.0cm) FS (%) 38.8 %SV50.8 ml LVEF(%)60.0 (>50%) Aortic Valve AoV Peak Yakov.100.2cm/sAoV VTI19.9cm AO Peak GR.4.0mmHgLVOT Peak Yakov.106.1cm/s LVOT VTI 22.43cmAO Mean GR.3mmHg SHEMAR (VMAX)3.14er6NUL (VTI)3.71cm2 Mitral Valve MV E Nqsvjgvc72.7cm/sMV DECEL [id number] MV A Qauheatc96.8cm/sMV GBM93cr E/A Ratio0.6MVA (PHT)3.02cm2 TDI E/Lateral E'8.7E/Medial E'10.1 Tricuspid Valve TR P. Tbyurphx190vp/sRAP EEGQEFMG2lrYe TR Peak Gr.06ciMoCTYG40bkAr Pulmonary Vein S1 Hcoylyyk14.5cm/sD2 Psntwysm26.7cm/s LEFT VENTRICLE The left ventricle is normal size. There is normal left ventricular wall thickness. The left ventricu lar systolic function is normal and the ejection fraction is within normal range. The Ejection Fracti on is 55-60%. There is normal LV segmental wall motion. Transmitral Doppler flow pattern is Grade I-a bnormal relaxation pattern. RIGHT VENTRICLE The right ventricle is normal size. The right ventricular systolic function is normal. ATRIA The left atrium size is normal. The right atrium size is normal. The interatrial septum is intact wit h no evidence for an atrial septal defect or patent foramen ovale as noted on 2-D or Doppler imaging. AORTIC VALVE The aortic valve is calcified but opens well. Doppler and Color Flow revealed no significant aortic r egurgitation. There is no significant aortic valvular stenosis. MITRAL VALVE The mitral valve is normal in structure and function. Mitral annular calcification is mild. There is no evidence of mitral valve prolapse. There is no mitral valve stenosis. Doppler and Color Flow revea led no mitral valve regurgitation noted. TRICUSPID VALVE The tricuspid valve is normal in structure and function. Doppler and Color Flow revealed mild tricusp id regurgitation. The PA pressure was estimated at 46 mmHg. There is no tricuspid valve stenosis. PULMONIC VALVE The pulmonic valve is not well visualized. Doppler and Color Flow revealed trace pulmonic valvular re gurgitation. There is no pulmonic valvular stenosis. GREAT VESSELS The aortic root is normal in size. The ascending aorta is normal in size. The IVC is normal in size a nd collapses >50% with inspiration. PERICARDIAL EFFUSION There is no evidence of significant pericardial effusion. Critical Notification Critical Value: No <Conclusion> The left ventricle is normal size. The left ventricular systolic function is normal and the ejection fraction is within normal range. The Ejection Fraction is 55-60%. Doppler and Color Flow revealed no significant aortic regurgitation. There is no significant aortic valvular stenosis. Doppler and Color Flow revealed no mitral valve regurgitation noted. Doppler and Color Flow revealed mild tricuspid regurgitation. The PA pressure was estimated at 46 mmHg. Signed by : Jadiel Fraire MD Electronically Approved : 07/06/2019 09:08:46
== END | disposition home or self-care (01) ==
LOC: ECHO 07:24
PROVIDERS: ATTEND Surgery
DX: Z01.810 Encounter for preprocedural cardiovascular examination (principal); I08.3 Combined rheumatic disorders of mitral, aortic and tricuspid valves; K86.2 Cyst of pancreas; E11.9 Type 2 diabetes mellitus without complications; Z87.891 Personal history of nicotine dependence
CPT/HCPCS: 93306

== ENCOUNTER → 2019-11-27 | Outpatient (CLI) | payer MEDICARE ==
[2018-07-07 07:52] VITALS: BP 159/75
[~2019-11-27] MED LIST changes: +CONTRAST GIVEN. MC PRN; +IOHEXOL 300 MG/ML 100ML VIAL. IV ONE
--- NOTE | 2019-11-27 10:47 | RAD ---
EXAM: CT ABDOMEN/PELVIS WITH AND WITHOUT CONTRAST. HISTORY: Pancreatic lesion status post resection. TECHNIQUE: Computed tomography of the abdomen and pelvis was performed before and after the intravenous administration of iodinated contrast. One or more of the following individualized dose reduction techniques were utilized for this examination: 1. Automated exposure control. 2. Adjustment of the mA and/or kV according to patient size. 3. Use of iterative reconstruction technique. COMPARISON: None. FINDINGS: Lung windows through the visualized portions of the bases reveal mild atelectasis. There is a calcified granuloma in the right lower lobe. Bone windows reveal no suspicious lesions. A lucent region in the right medial iliac bone is consistent with a prominent hemangioma and appears stable. The pancreatic body and tail have been resected in the interval. The spleen has also been resected. The pancreatic uncinate process and portions of the head remain. There is an ill-defined low-density focus at the resection margin as seen on series 6 image 46 that measures 2.0 x 1.9 cm. There is adjacent stranding. This may represent a small fluid collection, granulation tissue or recurrent mass. There is mild stranding throughout the remainder of the pancreatectomy bed. The gallbladder is surgically absent. The common duct is not dilated. There are no suspicious hepatic lesions. The adrenal glands and kidneys are unremarkable. There are no pathologically enlarged lymph nodes. The uterus is surgically absent. Sigmoid diverticulosis is moderate to severe. There is no evidence of appendicitis. There is no small bowel obstruction. IMPRESSION: 1. A 2.0 cm hypoattenuating focus at the pancreatic head resection margin may represent a small fluid collection, postprocedural scarring, or a recurrent mass. Correlate with postoperative pathology. If there is a history of malignancy, correlation with CA-19-9 levels and short interval follow-up is recommended to exclude a recurrence. 2. No evidence of metastatic disease. Electronically signed by: Luis Patten MD (11/27/2019 10:44 AM) [id number]
== END | disposition home or self-care (01) ==
LOC: CT 09:10
PROVIDERS: ATTEND Surgery
DX: K57.30 Diverticulosis of large intestine without perforation or abscess without bleeding (principal); J84.10 Pulmonary fibrosis, unspecified; J98.11 Atelectasis
CPT/HCPCS: 74178; Q9967

== ENCOUNTER → 2019-12-25 | Outpatient (CLI) | payer MEDICARE ==
[2018-07-07 07:52] VITALS: BP 159/75
[~2019-12-25] MED LIST changes: -CONTRAST GIVEN. MC PRN; -IOHEXOL 300 MG/ML 100ML VIAL. IV ONE
--- NOTE | 2019-12-25 16:37 | RAD ---
BILATERAL SCREENING MAMMOGRAM, 3-D History: Routine screening. Comparison: 09/05/2018 screening mammogram. Technique: MLO and CC digital tomosynthesis (3D) images obtained. Radiologist reviewed these images on dedicated workstation. Findings: Breast Tissue Density A : The breasts are almost entirely fatty. There are no dominant masses, suspicious microcalcifications, or architectural distortion. IMPRESSION: No mammographic evidence of malignancy. Recommend routine screening. BI-RADS category 1: Negative. The images were reviewed with computer-aided detection. Patient information is entered into reminder system with a target due date for the next screening mammogram. Mammography is the most sensitive method for finding small breast cancers, but it does not detect them all and is not a substitute for careful clinical examination. A negative mammogram does not negate a clinically suspicious finding and should not result in delay in biopsying a clinically suspicious abnormality. "Our facility is accredited by the [employer] Mammography Program." Electronically signed by: Sean Roblero MD (12/25/2019 4:35 PM) [email or web address]
== END ==
LOC: MAMMO 13:49
PROVIDERS: ATTEND Family Medicine
DX: Z12.31 Encounter for screening mammogram for malignant neoplasm of breast (principal)
CPT/HCPCS: 77063; 77067

== ENCOUNTER 2020-07-06 05:14 | Emergency (ER) | payer MEDICARE ==
[~2020-07-06] VITALS: Ht 160 cm; Wt 91.0 kg
[2020-07-06] MEDS ORDERED: ACETAMINOPHEN 500 MG TABLET PO ONE (06:00)
[2020-07-06 06:06] LABS: INFLUENZA A PATIENT NEGATIVE (NEGATIVE); INFLUENZA B PATIENT NEGATIVE (NEGATIVE)
[2020-07-06] MEDS ORDERED: AZIT250T PO (06:18)
--- NOTE | 2020-07-06 06:18 | PHYS DOC ---
Past Medical History Past Medical History: Diabetes-Type II, High Cholesterol, Hypertension Past Surgical History: Appendectomy, Cholecystectomy, Hysterectomy, Oophorectomy, Tonsillectomy, Other Additional Past Surgical Histo: Whipple Smoking Status: Former Smoker Alcohol Use: None Drug Use: None General Adult EDM: Chief Complaint: FEVER HPI: HPI: 74-year-old female past medical history significant for diabetes, hypertension and hyperlipidemia with history of 20-year tobacco dependence (no official COPD diagnosis/never required albuterol), presents to the ED with complaints of subjective fever and chills, dry cough and frontal mild headache that started last night around 6 PM, took Tylenol at 6 PM. Reports her temperature at that time was 100.9. Woke up this morning with worsening fever and chills and her oral temperature was 100.6. Works for [employer] that had a work democrat 07/02, 4 days ago. No other known sick contacts. Denies any associated vomiting, nausea, diarrhea, abdominal pain, chest pain, dyspnea, hemoptysis, fatigue, lethargy, dyspnea, leg swelling or hemoptysis. No history of cardiac arrhythmia, CAD, stroke or coagulopathy. Reports she was admitted in July with concern for pancreatic cancer status post Whipple procedure. Biopsy including lymph nodes were all benign. Was started on insulin at that time. Glucose was 156 this morning. Is requesting testing for Covid and "can I go ho me?" Influenza vaccine up-to-date. Review of Systems: Review of Systems: Constitutional: Denies diaphoresis or lethargy Eyes: Denies change in visual acuity. [] HENT: Denies nasal congestion or sore throat. [] Respiratory: Denies hemoptysis or shortness of breath. [] Cardiovascular: Denies chest pain or edema. [] GI: Denies abdominal pain, nausea, vomiting, bloody stools or diarrhea. [] : Denies dysuria or hematuria Musculoskeletal: Denies back pain or joint pain. [] Integument: Denies rash. [] Neurologic: Denies neck stiffness, focal weakness or sensory changes. [] Endocrine: Denies polyuria or polydipsia. [] Lymphatic: Denies swollen glands. [] Psychiatric: Denies depression or anxiety. [] Heart Score: Risk Factors: Risk Factors: DM, Current or recent (<one month) smoker, HTN, HLP, family history of CAD, obesity. Risk Scores: Score 0 - 3: 2.5% MACE over next 6 weeks - Discharge Home Score 4 - 6: 20.3% MACE over next 6 weeks - Admit for Clinical Observation Score 7 - 10: 72.7% MACE over next 6 weeks - Early Invasive Strategies Current Medications: Current Medications Medications (Trade) Dose Ordered Sig/Caleb Start Time Stop Time Status Last Admin Dose Admin Acetaminophen (Tylenol) 1,000 mg 1X ONCE 07/06/20 06:00 07/06/20 06:01 DC 07/06/20 05:47 1,000 MG Allergies: Allergies: Allergies Coded Allergies Type Severity Reaction Last Updated Verified TRISH Inhibitors Allergy Intermediate 07/07/18 Yes rosuvastatin Allergy Intermediate 07/07/18 Yes Physical Exam: PE: Constitutional: flsuhed/flu-appearing, no acute distress, non-toxic appearance. HENT: Normocephalic, atraumatic, mild pharyngeal erythema no exudates Eyes: EOMI, conjunctiva normal, no discharge. Neck: Normal range of motion, supple, Cardiovascular: S1/2 present, regular rhythm Lungs & Thorax: Speaking in full sentences, bilateral equal chest rise, no tachypnea or increased work of breathing, 96-100% RA Abdomen: soft, no tenderness, Skin: Warm, dry, no erythema, no rash. [] Back: No tenderness, no CVA tenderness. [] Extremities: No tenderness, no cyanosis, no LE edema Neurologic: Alert and oriented X 3, normal motor function, normal sensory function, no focal deficits noted. [] Psychologic: Affect normal, judgement normal, mood normal. [] Current Patient Data: Labs: Laboratory Tests Test 07/06/20 05:30 Influenza Type A Antigen Negative (NEGATIVE) Influenza Type B Antigen Negative (NEGATIVE) Vital Signs: Vital Signs Date Time Temp Pulse Resp B/P (MAP) Pulse Ox O2 Delivery O2 Flow Rate FiO2 07/06/20 05:26 98.6 92 18 159/77 (104) 96 Room Air 98.6 EKG: EKG: [] Radiology/Procedures: Radiology/Procedures: IMAGING REPORT Signed PATIENT: RICHARD RAM ACCOUNT: [id number] : 1945 LOCATION: ER AGE: 74 SEX: F EXAM STATUS: REG ER ORD. PHYSICIAN: MANSOOR MORENO DO REASON: cough PROCEDURE: CHEST AP ONLY Single view chest dated 07/06/2020. Comparison made to 07/19/2016. CLINICAL INDICATION: Cough. FINDINGS: Single upright portable exam performed. Heart and mediastinal contours within normal limits. There is some patchy and linear perihilar opacity, similar to prior study.. No consolidation or pleural effusion. No pneumothorax. Calcified granuloma right base. IMPRESSION: No acute radiographic abnormality. Prominent perihilar linear opacities, likely scar or atelectasis, unchanged from prior exam. Electronically signed by: Orlando Plummer MD (07/06/2020 6:16 AM) [facility] [place] DICTATED and SIGNED BY: ORLANDO PLUMMER MD DATE: 07/06/20 [id number] 0 Course & Med Decision Making: Course & Med Decision Making Pertinent Labs and Imaging studies reviewed. (See chart for details) COVID-19 CRITERIA: The patient was evaluated during the global COVID-19 pandemic, and that diagnosis was suspected/considered upon their initial presentation. Their evaluation, treatment and testing was consistent with current guidelines for patients who present with complaints or symptoms that may be related to COVID-19. Concern for fever with URI, Covid test pending. Influenza negative. Will treat for atypical pneumonia with azithromycin. CXR . I also educated on quarantining-to avoid traveling, and distance from family members for the next 14 days to prevent spread of covid (she asks "Is caitie out of the question?" ). Also educated patient that there is a 30% false-negative rate of Covid PCR [id number] rate is higher with antigen testing. Will discharge home with strict ED return precautions were given for chest pain, dyspnea, stroke symptoms or increased work of breathing. Encouraged urgent outpatient follow-up with PMD. Life-threatening processes were considered but are low suspicion at this time, given history, physical exam and ED workup. Pt was educated on all prescription medications and adverse effects. All patient's questions were answered and pt was stable at time of discharge. Life/limb-threatening differential includes but is not limited to, foreign body, infection/sepsis, congestive heart failure or pulmonary edema, lung cancer intrathoracic mass, bronchoconstriction, asthma/COPD/lung disease exacerbation, pneumothorax or hemothorax, pulmonary emboli, autoimmune/neurologic disease or toxidrome. I spoken with the patient and her caregivers. I explained the patient's condition, diagnoses and treatment plan based on the information available to me at this time. I have answered the patient and her caregiver's questions and addressed any concerns. The patient and her caregivers have a good understanding of patient's diagnosis, condition and treatment plan as can be expected at this point. Vital signs have been stable. Patient's condition is stable and appropriate for discharge from the emergency department. Patient will pursue further outpatient evaluation with primary care physician or other designated or consulting physician as outlined in the discharge instructions. The patient and/or caregivers are agreeable to this plan of care and follow-up instructions have been explained in detail. The patient and/or caregivers have received these instructions in written form and have expressed an understanding of the discharge instructions. The patient and/or caregivers are aware that any significant change of condition or worsening of symptoms should prompt immediate return to this or the closest emergency department or call to 911. Cornelia Disclaimer: Cornelia Disclaimer: This electronic medical record was generated, in whole or in part, using a voice recognition dictation system. Departure Departure Impression: Primary Impression: Person under investigation for COVID-19 Additional Impressions: Cough Sore throat Disposition: 01 DC HOME SELF CARE/HOMELESS Condition: STABLE Referrals: ZARI REDDY MD (PCP) Patient Instructions: Cough, Adult Additional Instructions: Return to ED immediately if your oxygen level drops below 90% (purchase a pulse oximetry at a medical supply store), difficulties breathing including rapid breathing or increased work of breathing (skin sucking under ribs), chest pain or stroke-like symptoms (facial droop, speech changes, arm/leg weakness). You have been tested for or diagnosed with COVID-19. It is an infection caused by a new type of coronavirus. COVID-19 will cause cold-like or mild flu symptoms in most. It can cause more severe symptoms like problems breathing in some. There is no treatment for COVID-19. The body will clear the infection over time. Self-care will help to ease discomfort. Steps to Take: Self-Care Rest as needed. Healthy habits may help you feel better. Steps include: Choose healthy foods including fruits and vegetables. Drink water throughout the day. Get plenty of sleep each night. If you smoke, try to quit. It may ease breathing. Avoid alcohol. Keep Others Healthy The virus can spread to others. Droplets are released every time you sneeze or cough. The droplets can get into the mouth, nose, or eyes of people near you and lead to infection. To lower the chances of spreading COVID-19 to others: Stay at home until your doctor has said it is safe to leave. If you tested positive this will mean staying isolated until both of the following are true: At least 7 days have passed since the start of illness. You are free of fever for at least 72 hours without the use of medicine. During this time: - Avoid public areas, events, or transportation. Do not return to work or school until your doctor has said it is safe to do so. - Call ahead if you need to go to a medical center. Let them know you may have COVID-19. It will help them guide you where to go. They may also ask you to wear a facemask when you come to the office. - If you call for emergency medical services, let them know you may have COVID- 19. While at home: - Try to avoid close contact with others. Stay about 6 feet away. - If possible, spend most of your time in a separate room from others. - Use a face mask if you will be in close contact with others such as sharing a room or vehicle. - Have someone wipe down common surfaces in the home. Use household sand caster every day on areas like doorknobs, counters, or sinks. - Cough or sneeze into a tissue. Throw the tissue away right after use. If a tissue is not available, cough or sneeze into your elbow. - Wash your hands often. Wash them after sneezing or coughing. Use soap and water and wash for at least 20 seconds. Alcohol based hand cleaner housekeeping can be used if soap and water is not available. - Do not prepare food for others. Avoid sharing personal items like forks, spoons, or toothbrushes. - Avoid close contact with pets while you are sick. There is no evidence of the virus passing to pets. This is a safety step until more is known about this virus. Isolation can be frustrating. Social interaction can help. Keep in touch with friends and family through phone and tech options. You can still interact with others in your home, just keep a safe distance of about 6 feet. Follow-up: Your doctors office will check in with you to see if there are any changes in your health. You may be asked to keep track of symptoms to share with them. They will also let you know when you are clear to be in public again. Problems to Look Out For: Contact your doctor if your recovery is not going as you expect. Get emergency care if you have problems such as: - Trouble breathing - Nonstop chest pain or pressure - Changes in awareness, confusion, or problems waking - Lips or face have bluish color - Worsening of symptoms If you think you have an emergency, call for emergency medical services right away. As taken from [facility] Azithromycin (ZITHROMAX) 250 Mg Tablet 1 PKG PO UD, #6 TAB Prov: MANSOOR MORENO DO 07/06/20 MANSOOR MORENO DO Jul 06, 2020 06:18
[2020-07-06 06:22] VITALS: BP 141/62
--- NOTE | 2020-07-08 10:17 | NUR ---
IP: Informed pt of positive COVID test and the need to quarantine for 14 days form symptom onset. Pt verbalized understanding.
== END 2020-07-06 06:27 | disposition home or self-care (01) ==
LOC: ER 05:14
DX: U07.1 COVID-19 (principal); J02.9 Acute pharyngitis, unspecified; R51.9 Headache, unspecified; E11.9 Type 2 diabetes mellitus without complications; E78.00 Pure hypercholesterolemia, unspecified; I10 Essential (primary) hypertension; Z87.891 Personal history of nicotine dependence; Z88.8 Allergy status to other drugs, medicaments and biological substances
CPT/HCPCS: 71045; 87804; 99284; C9803; U0003

== ENCOUNTER → 2020-11-19 | Outpatient (CLI) | payer MEDICARE ==
[~2020-11-19] MED LIST changes: +AZIT250T PO; +IOHEXOL 240 MG/ML 50ML VIAL. PO ONE; +IOHEXOL 300 MG/ML 100ML VIAL. IV ONE
--- NOTE | 2020-11-20 09:08 | KCIC ---
CT of the abdomen and pelvis 11/20/2020 INDICATION: Status post resection of a pancreatic cyst. History of cholecystectomy. COMPARISON STUDY: CT of the abdomen and pelvis November 27, 2019. CT of the abdomen and pelvis December 19 9. TECHNIQUE: Multidetector CT imaging of the abdomen and pelvis is obtained following the administratio n of IV contrast. FINDINGS: Limited visualization of the lung bases demonstrates no acute abnormality. There are postop erative changes consistent mid and distal pancreatectomy, splenectomy. No residual or recurrent cyst or mass is identified within the pancreas. Liver is unremarkable. Cholecystectomy noted. Adrenal glan ds are unremarkable. Kidneys are unremarkable. Portal vein and SMV remain patent. No bowel obstructio n. No acute inflammatory changes not identified. Distal colonic diverticulosis noted. No acute inflam matory changes identified. Bladder is unremarkable. No free fluid or free air seen in the abdomen or pelvis. No acute osseous changes are identified. 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 No acute intra-abdomin al abnormality is identified. CT DOSING PQRS STATEMENT: One or more of the following individualized dose reduction techniques were utilized for this examinat ion: 1. Automated exposure control 2. Adjustment of the mA and/or kV according to patient size 3. Use of iterative reconstruction technique Electronically signed by: Dipesh Peter MD (11/20/2020 9:06 AM) [id number]
== END ==
LOC: KCIC CT 12:19
PROVIDERS: ATTEND Surgery
DX: K86.2 Cyst of pancreas (principal); Z90.49 Acquired absence of other specified parts of digestive tract
CPT/HCPCS: 74177; 82565; Q9966; Q9967

== ENCOUNTER → 2020-12-31 | Outpatient (CLI) | payer MEDICARE ==
[~2020-12-31] MED LIST changes: -IOHEXOL 240 MG/ML 50ML VIAL. PO ONE; -IOHEXOL 300 MG/ML 100ML VIAL. IV ONE
--- NOTE | 2020-12-31 09:55 | RAD ---
PROCEDURE: MG BILAT SCREEN+NY HISTORY: The patient is 75 years old and is seen for Reason: SCREENING MAMMOGRAM / Spl. Instructions: / History: . COMPARISON: December 25, 2019. TECHNIQUE: CC and MLO views of both breasts were obtained. Images were processed by the [employer] computer-aided detection system. DENSITY: There are scattered fibroglandular densities. FINDINGS: Unchanged right medial breast mass. No developing mass, suspicious calcifications or bertin ectural distortion. IMPRESSION: Stable bilateral mammograms. Recommend annual screening mammograms per [employer] guidelines. She will be due in one year. BI-RADS category 2 Benign Patient entered into a reminder system for annual screening mammogram. Electronically signed by: Lam Chance DO (12/31/2020 9:52 AM) [id number]
== END ==
LOC: MAMMO 10:13
PROVIDERS: ATTEND Family Medicine
DX: Z12.31 Encounter for screening mammogram for malignant neoplasm of breast (principal)
CPT/HCPCS: 77063; 77067

== ENCOUNTER 2021-01-29 05:38 | Emergency (ER) | payer MEDICARE ==
[~2021-01-29] VITALS: Ht 160 cm; Wt 90.9 kg
--- NOTE | 2021-01-29 07:15 | RAD ---
INDICATION: Reason: right ankle and knee pain, fell last night / Spl. Instructions: / History: COMPARISON: None. IMPRESSION: Right knee: 3 views obtained. Mild degenerative changes. Joint effusion is identified. At the anterior aspect of the patella there is a linear lucency seen. C ould be associated with the patient's patellar enthesophyte but a nondisplaced fracture is not exclud ed and would correlate with point tenderness in the region. If unclear clinically and further evaluat ion is desired CT could assess. Edema of the soft tissues adjacent to the lower pole of the patella. Right ankle: 3 views obtained. Edema is seen to the soft tissues with soft tissue swelling. No evidence of dislocation. There is a suspected tibiotalar joint effusion. Degenerative changes of t he midfoot. Plantar calcaneal spur and Achilles enthesophyte. There is a probable ossicle adjacent to the cuboid. Electronically signed by: Modesto Fields MD (01/29/2021 7:12 AM) [id number]
[2021-01-29 07:21] VITALS: BP 148/67
--- NOTE | 2021-01-29 07:44 | PHYS DOC ---
Past Medical History Past Medical History: Diabetes-Type II, High Cholesterol, Hypertension Past Surgical History: Appendectomy, Cholecystectomy, Hysterectomy, Oophorectomy, Tonsillectomy, Other Additional Past Surgical Histo: Whipple Smoking Status: Former Smoker Alcohol Use: None Drug Use: None General Adult EDM: Chief Complaint: LOWER EXT PAIN HPI: HPI: Patient is a 75 year old female who present to ER for evaluation of right knee and right ankle pain. Patient says she was walking into her house last night, she somehow slipped and sprained her right ankle her right knee. Patient has been able to walk but with more pain, the pain is more like in her right knee on the back of her right knee. Patient denies any pain in her hip or her back area. Patient declines any pain medication at this time Review of Systems: Review of Systems: Constitutional: Denies fever or chills. [] Eyes: Denies change in visual acuity. [] HENT: Denies nasal congestion or sore throat. [] Respiratory: Denies cough or shortness of breath. [] Cardiovascular: Denies chest pain or edema. [] GI: Denies abdominal pain, nausea, vomiting, bloody stools or diarrhea. [] : Denies dysuria. [] Musculoskeletal: Positive for right ankle and right knee pain Integument: Denies rash. [] Neurologic: Denies headache, focal weakness or sensory changes. [] Endocrine: Denies polyuria or polydipsia. [] Lymphatic: Denies swollen glands. [] Psychiatric: Denies depression or anxiety. [] Heart Score: C/O Chest Pain: N/A Risk Factors: Risk Factors: DM, Current or recent (<one month) smoker, HTN, HLP, family history of CAD, obesity. Risk Scores: Score 0 - 3: 2.5% MACE over next 6 weeks - Discharge Home Score 4 - 6: 20.3% MACE over next 6 weeks - Admit for Clinical Observation Score 7 - 10: 72.7% MACE over next 6 weeks - Early Invasive Strategies Allergies: Allergies: Allergies Coded Allergies Type Severity Reaction Last Updated Verified CHADD Inhibitors Allergy Intermediate 07/07/18 Yes rosuvastatin Allergy Intermediate 07/07/18 Yes Physical Exam: PE: Constitutional: Well developed, well nourished, no acute distress, non-toxic appearance. [] HENT: Normocephalic, atraumatic, Skin: Warm, dry, no erythema, no rash. [] Back: No tenderness, no CVA tenderness. [] Extremities: Right knee is tender to palpation, no swelling, right knee joint is stable. Right ankle is mild tender to palpation, no swelling. No deformity. Neurologic: Alert and oriented X 3, normal motor function, normal sensory function, no focal deficits noted. [] Psychologic: Affect normal, judgement normal, mood normal. [] Current Patient Data: Vital Signs: Vital Signs Date Time Temp Pulse Resp B/P (MAP) Pulse Ox O2 Delivery O2 Flow Rate FiO2 01/29/21 05:58 98.1 88 18 176/79 (88) 94 Room Air 98.1 EKG: EKG: [] Radiology/Procedures: Radiology/Procedures: [facility] [address] [place] [address] IMAGING REPORT Signed PATIENT: RICHARD RAM ACCOUNT: [id number] : 1945 LOCATION: ER AGE: 75 SEX: F EXAM STATUS: REG ER ORD. PHYSICIAN: EYAD LOGAN DO REASON: right ankle pain, fell last night PROCEDURE: ANKLE RIGHT 3V INDICATION: Reason: right ankle and knee pain, fell last night / Spl. Instructions: / History: COMPARISON: None. IMPRESSION: Right knee: 3 views obtained. Mild degenerative changes. Joint effusion is identified. At the anterior aspect of the patella there is a linear lucency seen. Could be associated with the patient's patellar enthesophyte but a nondisplaced fracture is not excluded and would correlate with point tenderness in the region. If unclear clinically and further evaluation is desired CT could assess. Edema of the soft tissues adjacent to the lower pole of the patella. Right ankle: 3 views obtained. Edema is seen to the soft tissues with soft tissue swelling. No evidence of dislocation. There is a suspected tibiotalar joint effusion. Degenerative changes of the midfoot. Plantar calcaneal spur and Achilles enthesophyte. There is a probable ossicle adjacent to the cuboid. Electronically signed by: Antonella Marks MD (01/29/2021 7:12 AM) [employer][id number] DICTATED and SIGNED BY: ANTONELLA MARKS MD DATE: 01/29/21 [id number] Course & Med Decision Making: Course & Med Decision Making Pertinent Labs and Imaging studies reviewed. (See chart for details) Patient is a 75-year-old female who present to ER for evaluation of right knee and right ankle pain. X-ray did not show any fracture or dislocation, Chadd wrap were applied to the right knee. Patient will discharge home. Patient will need to follow-up with her family physician for reevaluation of her right knee. Patient might need to have an MRI done of her right knee. Dragon Disclaimer: Dragon Disclaimer: This electronic medical record was generated, in whole or in part, using a voice recognition dictation system. Departure Departure Impression: Primary Impression: Right knee sprain Disposition: 01 HOME / SELF CARE / HOMELESS Condition: STABLE Referrals: ZARI REDDY MD (PCP) Follow up with your doctor as needed Patient Instructions: Knee Sprain Additional Instructions: Ibuprofen or Tylenol as needed for pain EYAD LOGAN DO Jan 29, 2021 07:44
== END 2021-01-29 07:47 | disposition home or self-care (01) ==
LOC: ER 05:38
DX: S83.91XA Sprain of unspecified site of right knee, initial encounter (principal); M25.571 Pain in right ankle and joints of right foot; E11.9 Type 2 diabetes mellitus without complications; E78.00 Pure hypercholesterolemia, unspecified; I10 Essential (primary) hypertension; Z88.8 Allergy status to other drugs, medicaments and biological substances; W18.49XA Other slipping, tripping and stumbling without falling, initial encounter; Y93.01 Activity, walking, marching and hiking; Y92.89 Other specified places as the place of occurrence of the external cause; Y99.8 Other external cause status
CPT/HCPCS: 73562; 73610; 99284